=== PATIENT | female | born 1975 | race Two or more races ===

== ENCOUNTER 2018-12-21 09:19 | Day surgery (SDC) | payer OTHER ==
[2018-12-20 10:26] VITALS: BMI 36.4
--- NOTE | 2018-12-21 09:59 | HP ---
History & Physical Update - History History: No Change - Physical Physical: No Change - Assessment Assessment: No Change - Plan Plan: No Change (H&P reviewed and unchanged She was cleared by cardiology, Dr. Valenzuela Normal stress test and Echo Consent signed and witnessed)
[2018-12-21] MEDS ORDERED: MIDAZOLAM HCL 2 MG/2 ML SINGLE DOSE VIAL ONE (10:12)
--- NOTE | 2018-12-21 10:20 | OP ---
Operative Note - Note: Operative Date: 12/21/18 Pre-Operative Diagnosis: 43yo with fibroid uterus and menometrorrhagia Operation: Hysteroscopy/myomectomy/polypectomy/D&C Findings: 1. Stge 2 anterior wall fibroid - Endometrial component resected 2. Endometrial polyp - resected 3. Endometrial curettings Post-Operative Diagnosis: Same as Pre-op Surgeon: Jaki Wells Anesthesiologist/P[employer]ER [employer] MACHINE OPERATOR: Mauricio Aranda Anesthesia: MAC Estimated Blood Loss (mls): 5 Instrument used (Debridements only): Symphion Hysteroscope Drains & Tubes with Location: Fluid Defficit 1200cc Drains, Volume Out (mls): 20 Fluid Volume Replaced (mls): 500
[2018-12-21] MEDS ORDERED: ONDANSETRON 4 MG/2 ML VIAL IVPUSH PRN (10:21)
[2018-12-21] MEDS ORDERED: oxyCODONE HCL 5 MG TABLET PO PRN (10:21)
[2018-12-21] MEDS ORDERED: IBUPROFEN 600 MG TABLET (FP) PO PRN (10:21)
[2018-12-21] MEDS ORDERED: IBUPROFEN 800 MG/8 ML IJ IVPB PRN (10:21)
[2018-12-21] MEDS ORDERED: ELECTROLYTE-148 SOLN 1,000 ML IV SCH (10:30)
[2018-12-21] MEDS ORDERED: PROPOFOL 20 ML ONE (10:38)
[2018-12-21] MEDS ORDERED: LACTATED RINGERS SOLUTION 1,000 ML IV SCH (10:45)
[2018-12-21 14:21] VITALS: BP 130/80; PULSE 76; TEMP 97.8
--- NOTE | 2018-12-21 14:22 | OP ---
DATE OF OPERATION: 12/21/2018 PREOPERATIVE DIAGNOSIS: A 43-year-old with fibroid uterus and menometrorrhagia, suspicion for submucosal fibroid. OPERATION: Hysteroscopy, myomectomy, polypectomy, dilation and curettage. FINDINGS: Stage 2 anterior wall fibroid, endometrial component resected, endometrial polyp 3 cm in length resected, and endometrial curettings. POSTOPERATIVE DIAGNOSIS: A 43-year-old with fibroid uterus and menometrorrhagia, suspicion for submucosal fibroid. SURGEON: Jaki Wells MD ANESTHESIOLOGIST: Mauricio Aranda CRNA ANESTHESIA: MAC. DESCRIPTION OF THE OPERATIVE PROCEDURE: After assuring informed consent, patient was brought to the operating room, where she was placed in dorsal lithotomy position. Perineum was prepped and draped in sterile fashion as well as vagina. The Paredes retractors were placed and anterior cervical lip was articulated with single-tooth tenaculum. The dilators were introduced, gradually increasing in size, to accommodate a 6.3-mm Symphion hysteroscope, which was wide balanced and primed. Intrauterine contents were visualized as described above. Upon introduction of the Symphion hysteroscope without any difficulty, the surgical resecting piece, 3.6-mm resectoscope, was placed through the Symphion hysteroscope and the polyp and the fibroid were resected in each turn. Excellent hemostasis was noted. All instruments were removed from the uterus, vagina, and cervix. Estimated blood loss 5 mL. Fluid deficit 1200 mL. Urine output 20 mL. The patient received 500 mL of IV fluids. Sponge and instrument count was correct x2. Specimens were sent to Pathology. Patient tolerated procedure well and was brought to the recovery room, extubated, in stable condition. Marie [id number]
--- NOTE | 2018-12-22 17:48 | PATH ---
Surgical Pathology Report Patient Name: MIMA CONSTANTINO [facility]. Rec. #: [id number] /Age/Gender: 1975 (Age: 43) / F Account: [id number] Location: [facility] SURGICAL Taken: 12/21/2018 Received: 12/21/2018 Reported: 12/22/2018 Physicians: Jaki Wells M.D. Specimen(s) Received FIBROID AND POLYP, ENDOMETRIAL CURETTINGS Clinical History Uterine fibroids Final Diagnosis FIBROID, POLYP, ENDOMETRIAL CURETTINGS, HYSTEROSCOPIC RESECTION, DILATION AND CURETTAGE: FIBROMUSCULAR TISSUE CONSISTENT WITH SUBMUCOSAL LEIOMYOMA, FRAGMENTS OF SECRETORY ENDOMETRIUM, AND BENIGN ENDOCERVICAL MUCOSA WITH SQUAMOUS METAPLASIA. Electronically Signed Nyasia Riley M.D. Gross Description Received in formalin (in only 1 container) labeled "fibroid and polyp and endometrial curettings," is a 2.8 x 2.6 x 0.3 cm aggregate of quinn soft tissue fragments. The formalin is filtered and the specimen is entirely submitted in one cassette. /12/21/2018 saudi12/21/2018
== END 2018-12-21 14:30 | disposition home or self-care (01) ==
LOC: JASU-SURG 09:19
PROVIDERS: ATTEND Obstetrics & Gynecology
PROC: 0UJD8ZZ Inspection of Uterus and Cervix, Via Natural or Artificial Opening Endoscopic (ICD-10-PCS; 2018-12-21)
PROC: 0UB98ZZ Excision of Uterus, Via Natural or Artificial Opening Endoscopic (ICD-10-PCS; principal; 2018-12-21 12:00)
PROC: 0UB97ZX Excision of Uterus, Via Natural or Artificial Opening, Diagnostic (ICD-10-PCS; 2018-12-21 12:00)
PROC: 0UDB7ZX Extraction of Endometrium, Via Natural or Artificial Opening, Diagnostic (ICD-10-PCS; 2018-12-21 12:00)
DX: N92.1 Excessive and frequent menstruation with irregular cycle (principal); D25.9 Leiomyoma of uterus, unspecified; N84.0 Polyp of corpus uteri
CPT/HCPCS: 84703; 88305-TC; 94760